=== PATIENT | female | born 2000 | race American Indian/Alaskan Native ===

== ENCOUNTER 2022-02-02 11:42 | Emergency (ER) | payer MEDICAID ==
--- NOTE | 2022-02-02 11:52 | Emergency Department Report ---
- General Chief Complaint: Earache Stated Complaint: SINUS INFECTION/FEVER PUI?: No Time Seen by Provider: 02/02/22 11:49 Source: patient Mode of arrival: Ambulatory Limitations: No Limitations - History of Present Illness Initial Comments: Patient is a 21-year-old that comes to the emergency room with sinus pressure, sinus drainage especially when lying flat, sore throat, and ear pain. She denies fever or chills. It is more urgent manner and pollen is heavy. She states that this occurs every year with the pollen. She has not seen a primary care doctor. She has not taken anything prior to arrival in the ER. On arrival patient is ambulatory and [id number] MD Complaint: sore throat, nasal congestion, sinus pain -: Gradual, year(s) Severity: mild Consistency: constant Improves With: nothing Worsens With: nothing Associated Symptoms: denies other symptoms, nasal congestion, sore throat, ear pain. denies: fever, chills, myalgias, diaphoresis, headache, rhinorrhea, stiff neck, cough, chest pain, shortness of breath, abdominal pain, nausea, vomiting, diarrhea, dysuria, rash, confusion, right sweats, weight loss, epistaxis, hoarseness - Related Data Previous Rx's Medication Instructions Recorded Last Taken Type Amoxicillin [Trimox CAP] 500 mg PO BID #20 capsule 02/02/22 Unknown Rx ED Review of Systems ROS: Stated complaint: SINUS INFECTION/FEVER Other details as noted in HPI Comment: All other systems reviewed and negative ED Past Medical Hx - Past Medical History Previous Medical History?: Yes - Surgical History Past Surgical History?: No - Family History Family history: no significant - Social History Smoking Status: Never Smoker - Medications Home Medications: Home Medications Medication Instructions Recorded Confirmed Last Taken Type Amoxicillin [Trimox CAP] 500 mg PO BID #20 capsule 02/02/22 Unknown Rx ED Physical Exam - General Limitations: No Limitations General appearance: alert, in no apparent distress - Head Head exam: Present: atraumatic, normocephalic - Eye Eye exam: Present: normal appearance - ENT ENT exam: Present: mucous membranes moist, other (Uvula boggy and red, sinus tenderness maxillary and frontal, left red TM) - Expanded ENT Exam Expanded TM/Canal exam: Erythema: Right TM, Left TM Mouth exam: Present: other (Uvula red no exudate) - Neck Neck exam: Present: normal inspection - Respiratory Respiratory exam: Present: normal lung sounds bilaterally. Absent: respiratory distress - Cardiovascular Cardiovascular Exam: Present: regular rate, normal rhythm. Absent: systolic murmur, diastolic murmur, rubs, gallop - GI/Abdominal GI/Abdominal exam: Present: soft, normal bowel sounds - Extremities Exam Extremities exam: Present: normal inspection - Back Exam Back exam: Present: normal inspection - Neurological Exam Neurological exam: Present: alert, oriented X3 - Psychiatric Psychiatric exam: Present: normal affect, normal mood - Skin Skin exam: Present: warm, dry, intact, normal color. Absent: rash ED Course Vital Signs 02/02/22 02/02/22 11:46 13:07 Temperature 97.8 F 98.4 F Pulse Rate 106 H 71 Respiratory 18 18 Rate Blood Pressure 142/75 Blood Pressure 130/80 [Right] O2 Sat by Pulse 100 97 Oximetry ED Medical Decision Making - Medical Decision Making Vital Signs 02/02/22 02/02/22 11:46 13:07 Temperature 97.8 F 98.4 F Pulse Rate 106 H 71 Respiratory 18 18 Rate Blood Pressure 142/75 Blood Pressure 130/80 [Right] O2 Sat by Pulse 100 97 Oximetry Patient educated on the role of pollen plays with her seasonal sinus issues. She has seen an ENT in the past and she will need to follow-up with him since this is an ongoing problem. Patient verbalizes understanding. Patient being discharged home with discharge plan of care including medications, diet, activity and follow-up. She verbalizes understanding - Differential Diagnosis Acute on chronic sinusitis/allergic rhinitis Critical care attestation.: If time is entered above; I have spent that time in minutes in the direct care of this critically ill patient, excluding procedure time. ED Disposition Clinical Impression: Sinusitis Qualifiers: Sinusitis location: unspecified location Recurrence: recurrent Otitis media Qualifiers: Otitis media type: unspecified Chronicity: acute Qualified Code(s): H66.90 - Otitis media, unspecified, unspecified ear Disposition: HOME / SELF CARE / HOMELESS Is pt being admited?: No Does the pt Need Aspirin: No Condition: Stable Instructions: Sinusitis, Adult, Otitis Media, Adult Additional Instructions: Medication as ordered today until gone Motrin or Tylenol for pain Continue your home allergy medicines You may want to try adding Flonase to see if that helps with your symptoms Stay well-hydrated with water Follow-up with PCP or ENT next week to make sure you are getting better Prescriptions: Amoxicillin [Trimox CAP] 500 mg PO BID #20 capsule Referrals: SPENCER PAYNE MD [Staff Physician] - 3-5 Days Forms: Work/School Release Form(ED) Time of Disposition: 11:51
[2022-02-02 13:08] VITALS: BP 130/80
== END 2022-02-02 13:08 | disposition home or self-care (01) ==
LOC: ED 11:42
DX: J32.9 Chronic sinusitis, unspecified (principal); H66.90 Otitis media, unspecified, unspecified ear
CPT/HCPCS: 99282